=== PATIENT | male | born 2005 | race Caucasian/White ===

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

== ENCOUNTER 2024-04-15 12:20 | Emergency (ER) | payer MEDICAID, SELFPAY ==
[2024-04-15 12:22] VITALS: BP 132/75; PULSE 71; RESP 18; TEMP 36.6; O2SAT 99; BMI 22.2
--- NOTE | 2024-04-15 14:00 | ED.RN ---
Pt states he will come back later today when it hopefully won't be as busy.
== END 2024-04-15 14:00 | disposition left against medical advice (07) ==
LOC: ED 14:14
DX: K08.89 Other specified disorders of teeth and supporting structures (principal)

== ENCOUNTER 2024-04-18 10:47 | Emergency (ER) | payer MEDICAID, SELFPAY ==
[2024-04-18 10:47] VITALS: BP 132/84; PULSE 81; RESP 18; TEMP 36.6; O2SAT 100; BMI 21.6
--- NOTE | 2024-04-18 11:47 | EDS_ITS ---
HPI History of Present Illness Chief Complaint: Back Informant: patient Onset/Context/Timing Onset: Days (2) Context: Gradual Onset Timing: Continuous Quality: Sharp Location: Thoracic (Left upper) and Lumbar (Right lower) Worsened by: improves with Nothing Relieved by: Nothing Associated Symptoms Associated Symptoms: Numbness and Abdominal Pain; Negative for Tingling, Radiation to Right Leg, Radiation to Left Leg, Fever, Dysuria, Unable to Ambulate, Unable to Transfer, Urinary Retention, Urinary Incontinence, Constipation or Fecal Incontinence Narrative Narrative: Patient presents with back pain that has been getting worse over the past 2 days. Patient states it is mainly over his right lower lumbar area and left upper thoracic area. Patient denies any trauma or injury. Patient describes the pain as sharp. Patient states nothing makes it better nothing makes it worse. Patient states he has an area of numbness over the right lower lumbar area where his pain is. Patient states his pain does radiate into his abdomen. Patient denies any nausea or vomiting. Patient denies any paresthesias or weakness. Patient denies any bowel or bladder changes. Patient denies any saddle anesthesia. [facility] Medical History Asthma Home Medications ?Medication ?Instructions ?Recorded ?Last Taken ?Type naproxen 500 mg tablet 500 mg PO BID PRN #20 tabs 04/18/24 Unknown Rx Allergy/AdvReac Type Severity Reaction Status Date / Time No Known Allergies Allergy Verified 04/15/24 12:22 Social History Smoking Status: Current every day smoker tobacco type: cigarettes ROS ROS ED Constitutional Constitutional ED: Denies chills or fever(s) Eyes Eyes: Denies blurry vision or change in vision ENT ENT ED: Denies rhinorrhea or sore throat Cardiovascular Cardiovascular: Denies chest pain or palpitations Respiratory/Chest Respiratory/Chest: Reports dyspnea; Denies cough Gastrointestinal Gastrointestinal: Reports abdominal pain; Denies nausea or vomiting Genitourinary Genitourinary ED: Denies dysuria or hematuria Musculoskeletal Musculoskeletal: Reports back pain; Denies neck pain Integumentary Denies abscess or rash Neurologic Neurologic: Denies headache(s) or weakness Allergic/Immunologic Allergic/Immunologic ED: Denies mouth swelling or urticaria EXAM Physical Exam Const Vital Signs: 04/18/24 10:47 Temperature 98 F Temperature Source Oral Pulse Rate 81 Respiratory Rate 18 Blood Pressure 132/84 H Blood Pressure Mean 100 Pulse Ox 100 Oxygen Delivery Method Room Air Positive well nourished and well developed General Appearance ED: well developed and NAD HEENT Reports moist mucous membranes Neck supple and no JVD Resp normal respiratory effort and clear to auscultation bilaterally Cardio regular rate and regular rhythm GI soft to palpation, non-tender and non-distended Back/Spine Back/Spine Narrative: There is tenderness over the left upper thoracic paraspinal muscles. There is also tenderness over the right lower lumbar paraspinal muscles. There is no bony crepitance or step-off noted. Range of motion was limited in all motions of the thoracic and lumbar spine secondary to pain. Strength is 5/5 bilaterally in the upper and lower extremities. There are no sensory deficits noted. Deep tendon reflexes are 2/4 bilaterally in the lower extremities. Lumbar Spine / Lower Back: ROM limited and straight leg raise negative bilaterally Extremity normal to inspection General Extremety ED: Negative for edema or tenderness General Extremity: Negative for edema Neuro oriented x3 and no sensory deficits noted Sensorium / Orientation: alert Motor Exam: strength 5/5 throughout Deep Tendon Reflexes: Rt Patellar (L4): 2+, Lt Patellar (L4): 2+, Rt Ankle (S1): 2+ and Lt Ankle (S1): 2+ Deep Tendon Reflexes Back: Rt Patellar (L4): 2+, Lt Patellar (L4): 2+, Rt Ankle (S1): 2+ and Lt Ankle (S1): 2+ Psych mental status grossly normal MDM MDM MDM Narrative Medical decision making narrative: Differential diagnose includes pneumonia, bronchitis, thoracic strain, spondylolisthesis, and lumbosacral strain. Chest x-ray will be obtained to assess for pneumonia and bronchitis. X-rays of the lumbar spine will be obtained to assess for spondylolisthesis. Radiography Chest X-Ray - ED: 2 View, Read by ED Physician, Read by Radiologist and No Acute Disease X-Ray: LS SPine, Read by ED Physician, No Fracture, Normal Bony Alignment and DJD Diagnostic Testing: Clinical Impression(s) from Imaging Studies Chest X-Ray 04/18/24 11:48 IMPRESSION: COPD. Electronically Signed: Alexandru Phan MD at 13:05 EST , Lumbar Spine X-Ray 04/18/24 11:49 IMPRESSION: Degenerative changes of the spine, as detailed above. Electronically Signed: Alexandru Phan MD at 13:06 EST Reading Location ID and State: [id number] / [place] , Service support , PA and lateral chest x-ray was obtained. There are 2 views. On my independent interpretation, lung howard are clear. There is normal cardiac silhouette. Bony thorax is normal. There is no acute process noted. Radiologist also interpreted the x-ray and agrees. X-rays of the lumbar spine were obtained. There are 4 views. On my independent interpretation, there is no acute fracture or spondylolisthesis noted. Rad iologist also interpreted the x-rays and agrees. Treatment and Re-Evaluation Narrative: Smoking cessation discussed. Patient was advised of his findings. Patient was instructed to use ice to the area patient was instructed to do gentle stretching exercises. Patient was instructed to follow-up with his primary care physician in 5 to 7 days. Patient was given a prescription for Naprosyn. Patient was instructed to return if worse in any way. Patient understood and was agreeable with the plan. All questions were answered. Discharge Plan Triage Chief Complaint: Back ED Provider: Noe Hoffman Dx/Rx/DC Orders Clinical Impression: Acute thoracic myofascial strain, Acute lumbosacral myofascial strain Instructions: ED Back Sprain/Strain Prescriptions: New naproxen 500 mg tablet 500 mg PO BID PRN Qty: 20 0RF Stand Alone Forms: Work Status Form Primary Care Provider: Care Physician,No Primary Referrals: Noe Campos MD [Med Staff - Bean Roaster] - 5-7 Days Care Physician,No Primary [Primary Care Provider] - Print Language: Slovak Disposition Disposition: Home, Self Care Discharge Date/Time: 04/18/24 13:47
--- NOTE | 2024-04-18 11:48 | RAD_ITS ---
STUDY: X-RAY CHEST REASON FOR EXAM: Male, 19 years old. C/O BACK PAIN X2 DAYS. SWELLING NOTED ON THE RIGHT SIDE. IT STARTED IN HIS LEFT UPPER BACK AND IS NOW IN HIS RIGHT LOWER BACK TECHNIQUE: Single AP portable view of the chest. COMPARISON: July 03, 2023 FINDINGS: No visualized consolidation. There is hyperinflation of the lungs consistent with chronic obstructive lung disease (COPD). There is no demonstrated pleural abnormality. Normal size heart. Normal mediastinum and cora. Normal visualized pulmonary arteries. Normal visualized aortic arch and descending thoracic aorta. Normal visualized thoracic spine. Normal visualized ribs, clavicles, and shoulders. There is no demonstrated abnormality of the visualized soft tissue structures of the upper abdomen. RAD/Chest PA and Lateral IMPRESSION: COPD. Electronically Signed: Alexandru Phan MD at 13:05 EST ,
--- NOTE | 2024-04-18 11:49 | RAD_ITS ---
STUDY: X-RAY - LUMBAR SPINE REASON FOR EXAM: Male, 19 years old. Injury/Pain TECHNIQUE: 4 view(s) of the lumbar spine were obtained. COMPARISON: CT of abdomen and pelvis dated August 03, 2022 FINDINGS: Normal lumbar lordosis. There is no substantial scoliosis. There is a normal alignment of the vertebrae. Mild disc space narrowing at L4-L5 and L5 as well as slight retrolisthesis of L5 on S1 of 2 mm. Normal remaining disc spaces. No fracture or compression deformity. No pars interarticularis defects. The soft tissue structures are unremarkable. RAD/Lumbar Spine 2 or 3 Views IMPRESSION: Degenerative changes of the spine, as detailed above. Electronically Signed: Alexandru Phan MD at 13:06 EST ,
== END 2024-04-18 13:47 | disposition home or self-care (01) ==
PROVIDERS: Emergency Provider Emergency Medicine; Visit Provider Emergency Medicine
DX: S39.012A Strain of muscle, fascia and tendon of lower back, initial encounter (principal); S29.019A Strain of muscle and tendon of unspecified wall of thorax, initial encounter; F17.210 Nicotine dependence, cigarettes, uncomplicated; X58.XXXA Exposure to other specified factors, initial encounter
CPT/HCPCS: 71046; 72100; 99282

== ENCOUNTER 2024-06-21 14:19 | Emergency (ER) | payer MEDICAID, SELFPAY ==
[2024-06-21 14:20] VITALS: BP 128/67; PULSE 84; RESP 15; TEMP 36.1; O2SAT 97; BMI 20.7
--- NOTE | 2024-06-21 15:12 | ED.VIS.DENTA ---
HPI History of Present Illness Chief Complaint: Dental [facility] Medical History Asthma Home Medications ?Medication ?Instructions ?Recorded ?Last Taken ?Type naproxen 500 mg tablet 500 mg PO BID PRN #20 tabs 04/18/24 Unknown Rx amoxicillin 875 mg-potassium 1 tab PO BID #14 tabs 06/21/24 Unknown Rx clavulanate 125 mg tablet Allergy/AdvReac Type Severity Reaction Status Date / Time No Known Allergies Allergy Verified 04/15/24 12:22 Social History Smoking Status: Current every day smoker tobacco type: cigarettes EXAM Physical Exam Const Vital Signs: 06/21/24 14:20 Temperature 97 F L Temperature Source Temporal Pulse Rate 84 Respiratory Rate 15 Blood Pressure 128/67 H Blood Pressure Mean 87 Pulse Ox 97 Oxygen Delivery Method Room Air MDM MDM MDM Narrative Medical decision making narrative: HISTORY OF PRESENT ILLNESS: 19 old male presents with 1 year of dental pain. States right lower dental pain. Notes he can get pain meds here. REVIEW OF SYSTEMS: Pertinent positives: Dental pain Pertinent negatives: PHYSICAL EXAM: Nursing triage notes reviewed, Vital signs reviewed Constitutional: please see mdm HENT: MMM, no evidence of dental abscess, no submandibular edema or induration, no tonsillar exudates or erythema, uvula midline, patient was controlling secretions, no drooling, no trimus, no dysphonia Eyes: Pupils equal round and reactive to light, Extraocular muscles intact Neck: No stridor, no JVD, full neck ROM Lungs: Clear to auscultation, No wheezing or rales. No increased work of breathing, no conversational dyspnea, no accessory muscle use, no nasal flaring. No respiratory distress noted Heart: Regular rate and rhythm, No murmurs, No rubs and No gallops, 2+ distal pulses (radial, femoral, posterior tibial) in all extremities MEDICAL DECISION MAKING: Chief Complaint: Dental pain External records reviewed: Reviewed prior ED note was patient was seen for dental pain 2021 Factors affecting care: History of dental pain Social determinants of health: Poor insurance coverage History obtained from others: None Consults: None MDM Narrative: The patient was hemodynamically stable, afebrile, nontoxic-appearing. Poor dentition, dental erosion right lower molars. I considered the following differential diagnosis: Dental abscess, ANUG, Ludewig's angina, RPA, RADIOLOGICAL TECHNOLOGIST, dental caries, gingivitis Dental erosion noted. Likely dental caries. Will need dentistry follow-up. Will give prophylactic antibiotics in town ibuprofen instructions. The patient requested tramadol but I informed him the risk and benefits are out of balance with narcotics in the setting of dental pain specifically risk of addiction and respiratory depression are not worth the benefit of short-term pain control recommended solving the actual issue which is his dental erosion which will be followed by dentist. Shared decision making: I will have a discussion with the patient and or visitors regarding risk/benefits of further testing or admission. They will be made aware of of the risk/benefits inherent in this decision they will be given the opportunity to voice understanding. Impression: 1. Chronic dental pain 2. Dental caries Disposition: Discharge home This note was generated with [employer] dictation software. It may contain incorrect words, spelling, and punctuation that were not noted in review of the chart prior to signing. Discharge Plan Triage Chief Complaint: Dental ED Provider: Provider,Ed Physician Dx/Rx/DC Orders Instructions: ED Dental Pain Prescriptions: New amoxicillin-pot clavulanate 875-125 mg tablet 1 tab PO BID Qty: 14 0RF No Action naproxen 500 mg tablet 500 mg PO BID PRN Qty: 20 0RF Primary Care Provider: Care Physician,Lulu Primary Activity Restrictions/Additional Instructions: Thank you for trusting us with your care today! Please take antibiotics as prescribed. Please take Tylenol (2 pills, 650 mg), ibuprofen (2 pills, 400 mg) every 6 hours as needed for pain and fever control. Please return to the emergency department if your symptoms change or worsen. Please follow with Dentistry for further outpatient evaluation and management. Print Language: Barbadian Disposition Disposition: Home, Self Care
== END 2024-06-21 15:34 | disposition home or self-care (01) ==
LOC: ED 15:32
PROVIDERS: Emergency Provider Emergency Medicine; Referring Provider Emergency Medicine; Visit Provider Emergency Medicine
DX: K08.89 Other specified disorders of teeth and supporting structures (principal); G89.29 Other chronic pain; K02.9 Dental caries, unspecified; F17.210 Nicotine dependence, cigarettes, uncomplicated
CPT/HCPCS: 99282

== ENCOUNTER 2024-09-14 09:45 | Emergency (ER) | payer MEDICAID, SELFPAY ==
[2024-09-14 09:45] VITALS: BP 159/84; PULSE 98; RESP 16; TEMP 36.7; O2SAT 100; BMI 20.6
--- NOTE | 2024-09-14 10:16 | CT_ITS ---
CT/Chest WITH Contrast IMPRESSION: No acute traumatic findings. No focal consolidations. Reading Location: [id number]
--- NOTE | 2024-09-14 10:16 | EKG12_ITS ---
Test Reason : CP Blood Pressure : */* mmHG Vent. Rate : 65 BPM Atrial Rate : 65 BPM P-R Int : 146 ms QRS Dur : 96 ms QT Int : 374 ms P-R-T Axes : 70 101 80 degrees QTcB Int : 388 ms Normal sinus rhythm with sinus arrhythmia Rightward axis Borderline ECG Confirmed by Selwyn Larsen ([id number]), editor dictionary JOSE HOOD ([id number]) on 09/16/2024 10:52:37 AM Referred By: Confirmed By: Selwyn Larsen
--- NOTE | 2024-09-14 10:20 | EDS_ITS ---
HPI History of Present Illness Chief Complaint: Chest Other Narrative Narrative: Chief complaint and HPI: Left chest wall pain. 19-year-old male with no significant past medical history presents for evaluation of chest wall pain. 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 States it was approximately 50 pounds. Patient states since the incident he has continued to have left anterior chest pain that worsens with inspiration. Patient states it is difficult to take a deep breath. He has not taken anything for the pain. He has not been evaluated. He denies any fever, chills, nausea, vomiting, abdominal pain. States that the Beam only hit his chest. Review of systems: See HPI Medications: As listed on the chart Allergies: As listed on the chart PFSH: Per chart Vital signs: As listed on the chart. Reviewed. Physical exam: Gen: A&O x3, NAD Head: Normocephalic, atraumatic Eyes: No sclera icterus, conjunctiva clear, PERRL, EOMI ENT: TMs clear BL, moist mucous membranes, atraumatic Neck: Trachea midline, No JVD, Nontender full range of motion, CV: RRR, no murmurs, tender to palpation in the left anterior ribs-palpation recreates his pain, no crepitus/rash/ecchymosis Resp: Lungs CTA BL, no w/r/c GI: Abd soft, non-distended, non-tender, no r/r/g Musc: Full ROM, no deformity, no spinal TTP, no arabella step-offs Skin: Warm, dry, intact Neuro: Alert, oriented, grossly intact, sensation intact, GCS 15 Psych: Cooperative, appropriate mood and affect [facility] Medical History Asthma Home Medications ?Medication ?Instructions ?Recorded ?Last Taken ?Type NK 09/14/24 Unknown History Allergy/AdvReac Type Severity Reaction Status Date / Time No Known Allergies Allergy Verified 04/15/24 12:22 Social History (Updated 06/21/24 @ 15:32 by Margaret Valencia) housing: apartment current occupational status: employed Smoking Status: Current every day smoker tobacco type: cigarettes EXAM Physical Exam Const Vital Signs: 09/14/24 09:45 Temperature 98.1 F Temperature Source Oral Pulse Rate 98 Respiratory Rate 16 Blood Pressure 159/84 H Blood Pressure Mean 109 Pulse Ox 100 Oxygen Delivery Method Room Air MDM MDM MDM Narrative Medical decision making narrative: 19-year-old male with no significant past medical history presents for evaluation of left chest wall pain. On Monday, patient had a large steel beam drop onto his chest. Sixes proximately 50 pounds. Has had left-sided chest pain since. Morphine, Zofran ordered for pain. Differential diagnosis includes but is not limited to rib fracture, rib contusion, pneumothorax, cardi ac contusion. EKG reviewed. CT chest ordered. NS bolus ordered for contrast load. Basic labs ordered. CBC without leukocytosis or anemia. BMP unremarkable. Troponin unremarkable. I do not think delta is needed. CT of the chest shows no acute traumatic findings. No consolidations. At this point in time, patient's pain is secondary to chest wall/rib contusion. Recommended Tylenol and ibuprofen as needed for pain. Follow-up with PCP. 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 Patient will be placed on work restrictions for heavy lifting. Follow-up with PCP. Patient verb understanding of plan. EKG: Interpreted by me/EM physician: EKG shows normal sinus rhythm with sinus arrhythmia. No acute ischemic changes. Heart rate 65. Impression: 1. Left chest wall contusion 2. Left rib contusion 3. Blunt trauma to the chest Lab Data Labs: Laboratory Results - last 24 hr 09/14/24 10:25 WBC 7.8 RBC 5.33 Hgb 16.0 Hct 46.3 MCV 86.9 MCH 30.0 MCHC 34.6 RDW Std Deviation 39.2 RDW Coeff of Andrzej 12.3 Plt Count 312 MPV 9.4 Immature Gran % (Auto) 0.300 Neut % (Auto) 56.6 Lymph % (Auto) 26.6 [place] % (Auto) 6.9 Eos % (Auto) 8.7 H Baso % (Auto) 0.9 Absolute Neuts (auto) 4.4 Absolute Lymphs (auto) 2.08 Nucleated RBC % 0 Sodium 141 Potassium 4.4 Chloride 105 Carbon Dioxide 26.0 Anion Gap 10 BUN 8 Creatinine 0.93 Estim Creat Clear Calc 120.31 Est GFR (MDRD) Non-Af 121 BUN/Creatinine Ratio 8.6 L Glucose 100 H Calcium 9.6 Troponin T High Sens < 6 Radiography Diagnostic Testing: Clinical Impression(s) from Imaging Studies Chest CT 09/14/24 10:16 IMPRESSION: No acute traumatic findings. No focal consolidations. Reading Location: [facility] Discharge Plan Triage Chief Complaint: Chest Other ED Provider: Gurmeet Mauricio Dx/Rx/DC Orders Clinical Impression: Contusion of rib on left side Instructions: ED Chest Wall Contusion, ED Bruise, Rib Prescriptions: No Action NK Primary Care Provider: Care Physician,No Primary Referrals: Aman Osei MD [Med Staff - Active Staff] - 3-5 Days Activity Restrictions/Additional Instructions: Follow-up with the primary care physician listed above. Tylenol Motrin as needed for pain. Print Language: Occitan Disposition Disposition: Home, Self Care
[2024-09-14] MEDS: Morphine 4 MG/ML Syringe IV (10:30)
[2024-09-14] MEDS: 0.9% Normal Saline (1000mL) 1,000 ML 999 ML IV (10:30)
[2024-09-14] MEDS: Ondansetron 4 MG/2 ML Vial IV (10:30)
[2024-09-14 10:32] LABS: Absolute Lymphocyte Count 2.08 X10^3/uL (0.83-4.51); Absolute Neutrophil Count 4.4 X10^3/uL (2.0-7.7); Basophil# 0.07 X10^3/uL; Basophil% 0.9 % (0-1); Eosinophil# 0.68 X10^3/uL; Eosinophils% 8.7 % (0-5); Hematocrit 46.3 % (40-54); Lymphocyte # 2.08 X10^3/ul (0.83-4.51); Lymphocyte % 26.6 % (19-41); Mean Corp Hgb Conc 34.6 g/dL (32-36); Mean Corpuscular Volume 86.9 fL (80-94); Mean Platelet Vol. 9.4 fl (6.2-12.0); Monocyte# 0.54 X10^3/uL; Monocyte% 6.9 % (0-10); NRBC Flagged by Analyzer 0 % (0-5); Neutrophil # 4.44 X10^3/uL (2.7-7.7); Neutrophil % 56.6 % (47-70); Platelet Count 312 K/mm3 (150-450); RBC Distribution Width CV 12.3 % (11.6-14.6); RBC Distribution Width SD 39.2 fl (35.1-43.9); Red Blood Count 5.33 M/mm3 (4.6-6.2); White Blood Count 7.8 K/mm3 (4.4-11.0)
[2024-09-14 10:57] LABS: Anion Gap 10 (5-15); BUN 8 mg/dL (4-19); BUN/Creat Ratio 8.6 RATIO (10-20); Calcium,Total 9.6 mg/dL (7.6-11.0); Chloride 105 mmol/L (98-108); Creatinine, Serum 0.93 mg/dL (0.70-1.20); EST Glomerular Filtration Rate 121 (>60); Estimated Creatinine Clearance 120.31 ml/min (50-250); Glucose 100 mg/dL (70-99); Potassium 4.4 mmol/L (3.3-5.1); Sodium Level 141 mmol/L (133-145)
[2024-09-14 11:16] LABS: Troponin T High Sensitivity < 6 ng/L (<=22)
[2024-09-14 12:01] VITALS: BP 119/80; PULSE 67; RESP 14; TEMP 36.6; O2SAT 100
== END 2024-09-14 12:03 | disposition home or self-care (01) ==
PROVIDERS: Emergency Provider Surgery; Visit Provider Surgery
DX: S20.212A Contusion of left front wall of thorax, initial encounter (principal); F17.210 Nicotine dependence, cigarettes, uncomplicated; W20.8XXA Other cause of strike by thrown, projected or falling object, initial encounter
CPT/HCPCS: 71260; 80048; 84484; 85025; 93005; 96361; 96374; 96375; 99283; Q9967; A4216; J2405